=== PATIENT | female | born 1960 | race Caucasian/White ===

== ENCOUNTER 2019-01-08 10:42 | Emergency (ER) | payer BC ==
--- NOTE | 2019-01-08 12:51 | EDM.PDOC ---
ED HPI GENERAL MEDICAL PROBLEM - General Chief Complaint: ENT Problem Stated Complaint: SORE THROAT Time Seen by Provider: 01/08/19 12:47 Source of Information: Reports: Patient, RN Notes Reviewed - History of Present Illness INITIAL COMMENTS - FREE TEXT/NARRATIVE: Has been hoarse for about a month, saw ENT about a week ago, prescribed medrol dose pack for that. Now has had worsening sore throat for about a week. Painful to swallow. Denies congestion, cough, fever or chills. Throat Pain Score (Numeric/FACES): 3 - Related Data Allergies Allergy/AdvReac Type Severity Reaction Status Date / Time Sulfa (Sulfonamide Allergy Swelling Verified 01/08/19 12:09 Antibiotics) Home Meds: Home Meds Penicillin V Potassium 500 mg PO Q8HR #30 tab 01/08/19 [Rx] methylPREDNISolone [Medrol] 4 mg PO ASDIRECTED 01/08/19 [History] Past Medical History - Past Health History Medical/Surgical History: Denies Medical/Surgical History - Past Surgical History GI Surgical History: Reports: Appendectomy, Cholecystectomy Social & Family History - Tobacco Use Smoking Status *Q: Never Smoker - Caffeine Use Caffeine Use: Reports: Soda - Recreational Drug Use Recreational Drug Use: No ED ROS ENT - Review of Systems Review Of Systems: See Below Constitutional: Denies: Fever, Chills HEENT: Reports: Throat Pain. Denies: Rhinitis Respiratory: Reports: Cough (occasional mostly non prod) Cardiovascular: Denies: Chest Pain Endocrine: Reports: Fatigue GI/Abdominal: Denies: Abdominal Pain, Vomiting Musculoskeletal: Reports: No Symptoms Skin: Reports: No Symptoms ED EXAM, ENT - Physical Exam Exam: See Below General Appearance: Alert, Mild Distress Mouth/Throat: Pharyngeal Erythema. No: Throat Swelling, Tonsillar Exudates, Tonsillar Swelling Head: No: Facial Swelling Neck: Supple, Full Range of Motion. No: Lymphadenopathy (L), Lymphadenopathy (R ) Respiratory/Chest: No Respiratory Distress, Lungs Clear, Normal Breath Sounds Extremities: Normal Inspection, Normal Range of Motion Neurological: Alert, Oriented, No Motor/Sensory Deficits Skin: Warm, Dry, Normal Color Course - Vital Signs Last Recorded V/S: Last Vital Signs Temp 98.0 F 01/08/19 12:12 Pulse 69 01/08/19 12:12 Resp 20 01/08/19 12:12 BP 141/75 H 01/08/19 12:12 Pulse Ox 94 L 01/08/19 12:12 - Orders/Labs/Meds Orders: Active Orders 24 hr Category Date Time Status CULTURE STREP A CONFIRMATION [RM] Stat Lab 01/08/19 12:45 Results STREP SCRN A RAPID W CULT CONF [] Stat Lab 01/08/19 12:45 Results - Re-Assessments/Exams Free Text/Narrative Re-Assessment/Exam: 01/08/19 16:45 patient given a prescription for penvk at time of encounter. Rapid strep did later come back neg., pt notified. Departure - Departure Time of Disposition: 12:50 Disposition: Home, Self-Care 01 Condition: Fair Clinical Impression: Pharyngitis Qualifiers: Pharyngitis/tonsillitis etiology: unspecified etiology Qualified Code(s): J02.9 - Acute pharyngitis, unspecified - Discharge Information Prescriptions: Penicillin V Potassium 500 mg PO Q8HR #30 tab Instructions: Pharyngitis, [id number] Referrals: Chantell Guzman MD [Primary Care Provider] - Forms: ED Department Discharge Additional Instructions: penvk 500 mg 3 times daily for 10 days, tylenol up to 3 times daily as needed, you will be called later today with strep screen results. - My Orders Last 24 Hours: My Active Orders 01/08/19 12:45 CULTURE STREP A CONFIRMATION [RM] Stat STREP SCRN A RAPID W CULT CONF [RM] Stat - Assessment/Plan Last 24 Hours: My Active Orders 01/08/19 12:45 CULTURE STREP A CONFIRMATION [RM] Stat STREP SCRN A RAPID W CULT CONF [] Stat
== END 2019-01-08 13:09 | disposition home or self-care (01) ==
LOC: JD.ED 10:42
DX: J02.9 Acute pharyngitis, unspecified (principal); Z88.2 Allergy status to sulfonamides; Z79.899 Other long term (current) drug therapy
CPT/HCPCS: 87081; 87430; 99283